=== PATIENT | male | born 1985 | race Caucasian/White ===

== ENCOUNTER 2018-08-31 08:17 | Day surgery (SDC) | payer OTHER ==
[2018-08-31] MEDS ORDERED: SOD CHLORIDE 0.9% 1,000 ML IV (09:02)
[2018-08-31] MEDS ORDERED: LIDOCAINE 1% (MDV) 20 ML INJ (09:49)
[2018-08-31] MEDS: FENTAnyl 50 MCG/ML VIAL (10:30)
[2018-08-31] MEDS: MIDAZOLAM 1 MG/ML 2 ML INJ (10:45)
[2018-08-31 11:52] LABS: ADD MAN DIFF? NO
[2018-08-31 11:55] LABS: BASOPHIL # 0.1 10^3/ul (0.0-0.1); BASOPHILS % 0.9 % (0.0-2.0); EOSINOPHILS # 0.4 10^3/ul (0.0-0.5); EOSINOPHILS % 5.7 % (0.0-7.0); HEMATOCRIT 36.2 % (42.0-52.0); LYMPHOCYTES # 1.1 10^3/ul (0.8-2.9); LYMPHOCYTES % 16.2 % (15.0-51.0); MEAN CORPUSCULAR HEMOGLOBIN 28.2 pg (29.0-33.0); MEAN CORPUSCULAR HGB CONC 33.1 g/dl (32.0-37.0); MEAN CORPUSCULAR VOLUME 85.2 fl (82.0-101.0); MEAN PLATELET VOLUME 9.6 fl (7.4-10.4); MONOCYTE # 0.5 10^3/ul (0.3-0.9); MONOCYTES % 7.1 % (0.0-11.0); NEUTROPHIL # 4.6 10^3/ul (1.6-7.5); NEUTROPHILS % 69.8 % (39.0-77.0); PLATELET COUNT 173 10^3/UL (140-415); RED BLOOD COUNT 4.25 10^6/ul (4.70-6.10); RED CELL DISTRIBUTION WIDTH 13.7 % (11.5-14.5)
[2018-08-31 11:55] LABS: WHITE BLOOD COUNT 6.6 10^3/ul (4.8-10.8)
== END 2018-08-31 13:56 | disposition home or self-care (01) ==
LOC: RAD 08:17 → SDS 08:17 → RAD 13:56
DX: K86.3 Pseudocyst of pancreas (principal)
CPT/HCPCS: 49405; 75989; 77012; 85025; 87070; 87075

== ENCOUNTER 2018-10-04 12:05 | Inpatient (IN) | payer OTHER ==
[2018-10-04 12:59] LABS: ADD MAN DIFF? NO
[2018-10-04] MEDS: HYDROmorphONE 0.5 MG/0.5 ML SYG IV (13:00)
[2018-10-04] MEDS: ONDANSETRON 4 MG INJ IV ×2 (13:00→20:35)
[2018-10-04] MEDS: PIPER-TAZO 3.375 GM IV (PMX) 100 ML IVPB (13:00)
[2018-10-04 13:03] LABS: BASOPHIL # 0.1 10^3/ul (0.0-0.1); BASOPHILS % 0.6 % (0.0-2.0); EOSINOPHILS # 0.1 10^3/ul (0.0-0.5); EOSINOPHILS % 1.1 % (0.0-7.0); HEMOGLOBIN 12.5 g/dl (14.0-18.0); LYMPHOCYTES # 1.2 10^3/ul (0.8-2.9); LYMPHOCYTES % 13.6 % (15.0-51.0); MEAN CORPUSCULAR HEMOGLOBIN 27.7 pg (29.0-33.0); MEAN CORPUSCULAR HGB CONC 32.9 g/dl (32.0-37.0); MEAN CORPUSCULAR VOLUME 84.1 fl (82.0-101.0); MEAN PLATELET VOLUME 9.3 fl (7.4-10.4); MONOCYTE # 1.3 10^3/ul (0.3-0.9); NEUTROPHIL # 6.3 10^3/ul (1.6-7.5); NEUTROPHILS % 70.4 % (39.0-77.0); PLATELET COUNT 227 10^3/UL (140-415); RED BLOOD COUNT 4.52 10^6/ul (4.70-6.10); RED CELL DISTRIBUTION WIDTH 12.5 % (11.5-14.5)
[2018-10-04 13:28] LABS: ALANINE AMINOTRANSFERASE 63 IU/L (13-69); ALBUMIN 4.4 g/dl (3.3-4.9); ALBUMIN/GLOBULIN RATIO 1.25; ALKALINE PHOSPHATASE 120 IU/L (42-121); ANION GAP 13 (5-13); ASPARTATE AMINO TRANSFERASE 40 IU/L (15-46); BILIRUBIN,INDIRECT 0.6 mg/dl (0-1.1); BILIRUBIN,TOTAL 0.6 mg/dl (0.2-1.3); BLOOD UREA NITROGEN 9 mg/dl (7-20); CALCIUM 10.2 mg/dl (8.4-10.2); CARBON DIOXIDE 27 mmol/L (21-31); CHLORIDE 100 mmol/L (97-110); CREATININE 0.78 mg/dl (0.61-1.24); Estimated GFR > 60 mL/min (>60); GLUCOSE 146 mg/dl (70-220); INR 1.09; POTASSIUM 3.9 mmol/L (3.5-5.1); PROTIME 14.2 Sec (11.9-14.9); PT RATIO 1.1; SODIUM 140 mmol/L (135-144); TOTAL PROTEIN 7.9 g/dl (6.1-8.1)
[2018-10-04 13:29] LABS: PARTIAL THROMBOPLASTIN TIME 28.1 Sec (23.0-35.0)
[2018-10-04 13:39] LABS: TROPONIN-I < 0.012 ng/ml (0.000-0.120)
[2018-10-04] MEDS: SOD CHLORIDE 0.9% 100 ML (13:44)
[2018-10-04] MEDS: IOHEXOL 300MG/ML 150 ML BTL (13:44)
[2018-10-04] MEDS: METOCLOPRAMIDE 10 MG INJ IV (14:15)
[2018-10-04 15:07] LABS: LACTIC ACID 1.1 mmol/L (0.5-2.0)
[2018-10-04 16:22] LABS: URINE PH (Dip) POC 5.5 (5.0-8.5)
[2018-10-04 16:22] LABS: URINE BLOOD (Dip) POC Trace-intact (NEGATIVE); URINE GLUCOSE (Dip) POC Negative (NEGATIVE); URINE KETONES (Dip) POC Negative (NEGATIVE); URINE LEUKOCYTE EST (Dip) POC Negative (NEGATIVE); URINE NITRITE (Dip) POC Negative (NEGATIVE); URINE TOTAL PROTEIN POC 1+ (NEGATIVE)
[2018-10-04] MEDS ORDERED: NACL 0.9% 3 ML SYG IV (16:30)
[2018-10-04 16:36] LABS: ADD UMIC NO; UR ASCORBIC ACID NEGATIVE (NEGATIVE); UR BILIRUBIN (Dip) NEGATIVE (NEGATIVE); UR BLOOD (Dip) NEGATIVE (NEGATIVE); UR CLARITY CLEAR (CLEAR); UR COLOR YELLOW (YELLOW); UR GLUCOSE (Dip) NEGATIVE (NEGATIVE); UR KETONES (Dip) NEGATIVE (NEGATIVE); UR LEUKOCYTE ESTERASE (Dip) NEGATIVE Leu/ul (NEGATIVE); UR NITRITE (Dip) NEGATIVE (NEGATIVE); UR SPECIFIC GRAVITY (Dip) > 1.060 (1.003-1.030); UR TOTAL PROTEIN (Dip) NEGATIVE (NEGATIVE); UR UROBILINOGEN (Dip) NEGATIVE (NEGATIVE)
[2018-10-04] MEDS ORDERED: GLUCAGON 1 MG INJ IM (17:00)
[2018-10-04] MEDS ORDERED: DEXTROSE 50% 50 ML SYRINGE IV ×2 (17:00)
[2018-10-04] MEDS ORDERED: GLUCOSE GEL 15 GRAM TUBE BUCCAL (17:00)
[2018-10-04] MEDS ORDERED: GLUCOSE GEL 15 GRAM TUBE PO ×2 (17:00)
[2018-10-04] MEDS: NICOTINE (7 MG/24 HR) PATCH TRANSDERM (17:29)
[2018-10-04] MEDS: ACETAMINOPHEN 325 MG TAB PO (19:03)
[2018-10-04] MEDS: INSULIN ASPART [NOVOLOG] 3 ML PEN SC ×2 (19:25→22:17)
[2018-10-04] MEDS ORDERED: HYDROmorphONE 1 MG/ML SYG IV (20:00)
[2018-10-04 21:30] LABS: PROCALCITONIN 0.09 ng/mL (0.00-0.10)
[2018-10-04] MEDS: traZODone 100 MG TAB PO (22:15)
[2018-10-04] MEDS: AL HYDROX/MG HYDROX/SIMETH 30 ML CUP PO (22:15)
[2018-10-05] MEDS: ACCU-CHEK XX (02:00)
[2018-10-05] MEDS: ACETAMINOPHEN 325 MG TAB PO ×3 (02:41→16:50)
[2018-10-05] MEDS: ONDANSETRON 4 MG INJ IV ×4 (02:44→22:07)
[2018-10-05 05:44] LABS: ADD MAN DIFF? NO
[2018-10-05 05:46] LABS: BASOPHIL # 0.1 10^3/ul (0.0-0.1); BASOPHILS % 0.6 % (0.0-2.0); EOSINOPHILS # 0.1 10^3/ul (0.0-0.5); EOSINOPHILS % 0.9 % (0.0-7.0); HEMOGLOBIN 12.2 g/dl (14.0-18.0); LYMPHOCYTES # 0.8 10^3/ul (0.8-2.9); LYMPHOCYTES % 8.8 % (15.0-51.0); MEAN CORPUSCULAR HEMOGLOBIN 27.5 pg (29.0-33.0); MEAN CORPUSCULAR VOLUME 83.5 fl (82.0-101.0); MEAN PLATELET VOLUME 9.9 fl (7.4-10.4); MONOCYTE # 1.2 10^3/ul (0.3-0.9); MONOCYTES % 12.6 % (0.0-11.0); NEUTROPHIL # 7.3 10^3/ul (1.6-7.5); NEUTROPHILS % 76.7 % (39.0-77.0); PLATELET COUNT 191 10^3/UL (140-415); RED BLOOD COUNT 4.43 10^6/ul (4.70-6.10); RED CELL DISTRIBUTION WIDTH 12.6 % (11.5-14.5)
[2018-10-05 05:46] LABS: WHITE BLOOD COUNT 9.5 10^3/ul (4.8-10.8)
[2018-10-05 06:13] LABS: ALANINE AMINOTRANSFERASE 63 IU/L (13-69); ALBUMIN/GLOBULIN RATIO 1.14; ALKALINE PHOSPHATASE 120 IU/L (42-121); ANION GAP 12 (5-13); ASPARTATE AMINO TRANSFERASE 33 IU/L (15-46); BILIRUBIN,INDIRECT 0.6 mg/dl (0-1.1); BILIRUBIN,TOTAL 0.6 mg/dl (0.2-1.3); BLOOD UREA NITROGEN 11 mg/dl (7-20); CALCIUM 9.5 mg/dl (8.4-10.2); CARBON DIOXIDE 26 mmol/L (21-31); CHLORIDE 100 mmol/L (97-110); CREATININE 0.68 mg/dl (0.61-1.24); Estimated GFR > 60 mL/min (>60); GLUCOSE 160 mg/dl (70-220); MAGNESIUM 1.9 mg/dl (1.7-2.5); PHOSPHORUS 4.8 mg/dl (2.5-4.9); POTASSIUM 3.5 mmol/L (3.5-5.1); SODIUM 138 mmol/L (135-144); TOTAL PROTEIN 7.5 g/dl (6.1-8.1)
[2018-10-05 06:18] LABS: HEMOGLOBIN A1C 6.2 % (0-5.9)
[2018-10-05] MEDS: AL HYDROX/MG HYDROX/SIMETH 30 ML CUP PO (08:42)
[2018-10-05] MEDS: SERTRALINE 100 MG TAB PO (08:42)
[2018-10-05] MEDS: AMLODIPINE 5 MG TAB PO (08:42)
[2018-10-05] MEDS: NICOTINE (7 MG/24 HR) PATCH TRANSDERM (08:44)
[2018-10-05] MEDS: INSULIN ASPART [NOVOLOG] 3 ML PEN SC ×4 (08:54→21:00)
[2018-10-05] MEDS: PANTOPRAZOLE 40 MG INJ IV (11:39)
[2018-10-05] MEDS: morphine 2 MG INJ IV ×3 (11:39→23:51)
[2018-10-05] MEDS: clonAZEPAM 0.5 MG TAB PO (11:54)
[2018-10-05] MEDS: LOPERAMIDE 2 MG CAP PO ×2 (13:17→22:07)
[2018-10-05] MEDS: SOD CHLORIDE 0.9% 1,000 ML IV ×3 (15:47→23:56)
[2018-10-05 16:12] LABS: OCCULT BLOOD STOOL NEGATIVE (NEGATIVE)
[2018-10-05] MEDS: traZODone 100 MG TAB PO (22:07)
[2018-10-06] MEDS: ACCU-CHEK XX (02:00)
[2018-10-06 06:22] LABS: AMYLASE 41 U/L (11-123); ANION GAP 9 (5-13); BLOOD UREA NITROGEN 9 mg/dl (7-20); CARBON DIOXIDE 28 mmol/L (21-31); CHLORIDE 100 mmol/L (97-110); CREATININE 0.74 mg/dl (0.61-1.24); Estimated GFR > 60 mL/min (>60); GLUCOSE 132 mg/dl (70-220); POTASSIUM 3.7 mmol/L (3.5-5.1); SODIUM 137 mmol/L (135-144)
[2018-10-06] MEDS: morphine 2 MG INJ IV ×4 (07:12→21:40)
[2018-10-06] MEDS: SOD CHLORIDE 0.9% 1,000 ML IV ×4 (09:52→23:30)
[2018-10-06] MEDS: SERTRALINE 100 MG TAB PO (09:53)
[2018-10-06] MEDS: AMLODIPINE 5 MG TAB PO (09:53)
[2018-10-06] MEDS: NICOTINE (7 MG/24 HR) PATCH TRANSDERM (09:53)
[2018-10-06] MEDS: PANTOPRAZOLE 40 MG INJ IV (09:53)
[2018-10-06] MEDS: INSULIN ASPART [NOVOLOG] 3 ML PEN SC ×4 (09:55→20:36)
[2018-10-06] MEDS: ONDANSETRON 4 MG INJ IV ×2 (10:18→17:49)
[2018-10-06] MEDS: AL HYDROX/MG HYDROX/SIMETH 30 ML CUP PO (10:49)
[2018-10-06] MEDS: clonAZEPAM 0.5 MG TAB PO (11:25)
[2018-10-06 11:43] LABS: LIPASE 45 U/L (23-300)
[2018-10-06] MEDS: ACETAMINOPHEN 325 MG TAB PO ×2 (12:35→20:31)
[2018-10-06] MEDS: MEROPENEM 1 GM/50ML(PMX) 50 ML IVPB ×2 (13:54→21:48)
[2018-10-06] MEDS: HYDROCODONE/APAP (5/325) TAB PO (18:05)
[2018-10-06] MEDS: traZODone 100 MG TAB PO (20:30)
[2018-10-07] MEDS: SOD CHLORIDE 0.9% 1,000 ML IV ×4 (01:42→23:30)
[2018-10-07] MEDS: morphine 2 MG INJ IV ×4 (01:46→20:05)
[2018-10-07] MEDS: ONDANSETRON 4 MG INJ IV ×4 (01:46→20:31)
[2018-10-07] MEDS: ACCU-CHEK XX (02:00)
[2018-10-07 05:32] LABS: ADD MAN DIFF? NO
[2018-10-07 05:37] LABS: BASOPHILS % 0.2 % (0.0-2.0); EOSINOPHILS % 0.5 % (0.0-7.0); HEMATOCRIT 30.8 % (42.0-52.0); LYMPHOCYTES % 10.9 % (15.0-51.0); MEAN CORPUSCULAR HEMOGLOBIN 27.5 pg (29.0-33.0); MEAN CORPUSCULAR HGB CONC 32.5 g/dl (32.0-37.0); MEAN CORPUSCULAR VOLUME 84.8 fl (82.0-101.0); MEAN PLATELET VOLUME 9.3 fl (7.4-10.4); MONOCYTES % 11.6 % (0.0-11.0); NEUTROPHIL # 6.6 10^3/ul (1.6-7.5); NEUTROPHILS % 76.3 % (39.0-77.0); PLATELET COUNT 179 10^3/UL (140-415); RED BLOOD COUNT 3.63 10^6/ul (4.70-6.10); RED CELL DISTRIBUTION WIDTH 12.2 % (11.5-14.5)
[2018-10-07 05:37] LABS: WHITE BLOOD COUNT 8.7 10^3/ul (4.8-10.8)
[2018-10-07 06:11] LABS: ALANINE AMINOTRANSFERASE 32 IU/L (13-69); ALBUMIN 3.2 g/dl (3.3-4.9); ALKALINE PHOSPHATASE 79 IU/L (42-121); ANION GAP 11 (5-13); ASPARTATE AMINO TRANSFERASE 14 IU/L (15-46); BILIRUBIN,INDIRECT 0.6 mg/dl (0-1.1); BILIRUBIN,TOTAL 0.6 mg/dl (0.2-1.3); BLOOD UREA NITROGEN 8 mg/dl (7-20); CALCIUM 8.8 mg/dl (8.4-10.2); CARBON DIOXIDE 28 mmol/L (21-31); CHLORIDE 98 mmol/L (97-110); CREATININE 0.68 mg/dl (0.61-1.24); Estimated GFR > 60 mL/min (>60); GLUCOSE 112 mg/dl (70-220); POTASSIUM 3.2 mmol/L (3.5-5.1); SODIUM 137 mmol/L (135-144); TOTAL PROTEIN 6.1 g/dl (6.1-8.1)
[2018-10-07] MEDS: MEROPENEM 1 GM/50ML(PMX) 50 ML IVPB ×3 (06:18→22:17)
[2018-10-07 07:04] LABS: C-REACTIVE PROTEIN 37.4 mg/dl (0.0-0.9)
[2018-10-07 07:30] LABS: ERYTHROCYTE SEDIMENTATION RATE 59 mm/Hr (0-15)
[2018-10-07 07:43] LABS: PROCALCITONIN 0.11 ng/mL (0.00-0.10)
[2018-10-07] MEDS: INSULIN ASPART [NOVOLOG] 3 ML PEN SC ×4 (08:00→21:00)
[2018-10-07] MEDS: PANTOPRAZOLE 40 MG INJ IV (09:01)
[2018-10-07] MEDS: SERTRALINE 100 MG TAB PO (09:01)
[2018-10-07] MEDS: NICOTINE (7 MG/24 HR) PATCH TRANSDERM (09:02)
[2018-10-07] MEDS: AMLODIPINE 5 MG TAB PO (09:02)
[2018-10-07] MEDS: clonAZEPAM 0.5 MG TAB PO (10:08)
[2018-10-07] MEDS ORDERED: VANCOMYCIN IV PER PHARMACY XX (10:30)
[2018-10-07] MEDS: LOPERAMIDE 2 MG CAP PO ×2 (11:21→20:15)
[2018-10-07] MEDS: VANCOMYCIN HCL 2 GM in SOD CHLORIDE 0.9% 500 ML IVPB (12:18)
[2018-10-07] MEDS: POTASSIUM CHLORIDE 20 MEQ POWDER FOR ORAL SOLN PO (13:58)
[2018-10-07] MEDS: ACETAMINOPHEN 325 MG TAB PO (14:56)
[2018-10-07] MEDS: HYDROCODONE/APAP (5/325) TAB PO (16:04)
[2018-10-07] MEDS: traZODone 100 MG TAB PO (20:10)
[2018-10-07] MEDS: VANCOMYCIN 1.25 GM/NS 250 ML 250 ML IVPB (20:16)
[2018-10-08] MEDS: ACCU-CHEK XX (02:00)
[2018-10-08] MEDS: VANCOMYCIN 1.25 GM/NS 250 ML 250 ML IVPB (04:29)
[2018-10-08] MEDS: SOD CHLORIDE 0.9% 1,000 ML IV ×2 (04:37→07:30)
[2018-10-08] MEDS: morphine 2 MG INJ IV ×4 (06:09→19:39)
[2018-10-08] MEDS: MEROPENEM 1 GM/50ML(PMX) 50 ML IVPB (06:13)
[2018-10-08] MEDS: INSULIN ASPART [NOVOLOG] 3 ML PEN SC ×4 (08:00→21:00)
[2018-10-08] MEDS: PANTOPRAZOLE 40 MG INJ IV (09:11)
[2018-10-08] MEDS: NICOTINE (7 MG/24 HR) PATCH TRANSDERM (09:12)
[2018-10-08] MEDS: AMLODIPINE 5 MG TAB PO (09:12)
[2018-10-08] MEDS: SERTRALINE 100 MG TAB PO (09:12)
[2018-10-08] MEDS: ONDANSETRON 4 MG INJ IV (09:27)
[2018-10-08] MEDS: LOPERAMIDE 2 MG CAP PO (10:27)
[2018-10-08] MEDS: PIPER-TAZO 3.375 GM IV (PMX) 100 ML IVPB ×3 (12:33→23:45)
[2018-10-08] MEDS: HYDROCODONE/APAP (5/325) TAB PO ×2 (12:33→21:03)
[2018-10-08] MEDS: clonAZEPAM 0.5 MG TAB PO (12:40)
[2018-10-08] MEDS: traZODone 100 MG TAB PO (21:00)
[2018-10-09] MEDS: ACCU-CHEK XX (02:00)
[2018-10-09] MEDS: PIPER-TAZO 3.375 GM IV (PMX) 100 ML IVPB ×4 (05:55→23:16)
[2018-10-09] MEDS: morphine 2 MG INJ IV ×3 (06:04→20:50)
[2018-10-09 06:50] LABS: INR 1.17; PT RATIO 1.2
[2018-10-09 06:51] LABS: PARTIAL THROMBOPLASTIN TIME 30.3 Sec (23.0-35.0)
[2018-10-09] MEDS: INSULIN ASPART [NOVOLOG] 3 ML PEN SC ×4 (08:00→21:00)
[2018-10-09] MEDS: MIDAZOLAM 1 MG/ML 2 ML INJ (08:45)
[2018-10-09] MEDS: FENTAnyl 50 MCG/ML VIAL (08:45)
[2018-10-09] MEDS: LIDOCAINE 1% (MDV) 20 ML INJ (08:55)
[2018-10-09] MEDS: AMLODIPINE 5 MG TAB PO ×2 (09:00→12:39)
[2018-10-09] MEDS: NICOTINE (7 MG/24 HR) PATCH TRANSDERM ×2 (09:00→12:39)
[2018-10-09] MEDS: SERTRALINE 100 MG TAB PO ×2 (09:00→12:39)
[2018-10-09] MEDS: PANTOPRAZOLE 40 MG INJ IV ×2 (09:00→12:38)
[2018-10-09] MEDS: clonAZEPAM 0.5 MG TAB PO (13:03)
[2018-10-09] MEDS: HYDROCODONE/APAP (5/325) TAB PO (19:22)
[2018-10-09] MEDS: traZODone 100 MG TAB PO (20:50)
[2018-10-09] MEDS: HEPARIN 5,000 UNIT/1 ML VIAL SC (20:54)
[2018-10-10] MEDS: ACCU-CHEK XX (02:00)
[2018-10-10] MEDS: PIPER-TAZO 3.375 GM IV (PMX) 100 ML IVPB ×3 (05:12→17:19)
[2018-10-10] MEDS: morphine 2 MG INJ IV ×4 (05:12→20:59)
[2018-10-10 05:58] LABS: ADD MAN DIFF? NO
[2018-10-10 06:15] LABS: WHITE BLOOD COUNT 6.3 10^3/ul (4.8-10.8)
[2018-10-10 06:15] LABS: BASOPHILS % 0.6 % (0.0-2.0); EOSINOPHILS # 0.3 10^3/ul (0.0-0.5); HEMATOCRIT 30.4 % (42.0-52.0); HEMOGLOBIN 9.8 g/dl (14.0-18.0); LYMPHOCYTES # 1.1 10^3/ul (0.8-2.9); LYMPHOCYTES % 17.7 % (15.0-51.0); MEAN CORPUSCULAR HEMOGLOBIN 27.3 pg (29.0-33.0); MEAN CORPUSCULAR HGB CONC 32.2 g/dl (32.0-37.0); MEAN CORPUSCULAR VOLUME 84.7 fl (82.0-101.0); MEAN PLATELET VOLUME 9.8 fl (7.4-10.4); MONOCYTE # 0.5 10^3/ul (0.3-0.9); MONOCYTES % 7.9 % (0.0-11.0); NEUTROPHIL # 4.4 10^3/ul (1.6-7.5); NEUTROPHILS % 69.5 % (39.0-77.0); PLATELET COUNT 261 10^3/UL (140-415); RED BLOOD COUNT 3.59 10^6/ul (4.70-6.10); RED CELL DISTRIBUTION WIDTH 12.5 % (11.5-14.5)
[2018-10-10 06:40] LABS: MAGNESIUM 2.1 mg/dl (1.7-2.5)
[2018-10-10 06:42] LABS: ANION GAP 7 (5-13); BLOOD UREA NITROGEN 11 mg/dl (7-20); CALCIUM 8.6 mg/dl (8.4-10.2); CARBON DIOXIDE 34 mmol/L (21-31); CHLORIDE 99 mmol/L (97-110); CREATININE 0.64 mg/dl (0.61-1.24); Estimated GFR > 60 mL/min (>60); GLUCOSE 125 mg/dl (70-220); POTASSIUM 3.3 mmol/L (3.5-5.1); SODIUM 140 mmol/L (135-144)
[2018-10-10] MEDS: INSULIN ASPART [NOVOLOG] 3 ML PEN SC ×4 (08:00→20:17)
[2018-10-10] MEDS: POTASSIUM CHLORIDE (SR) 20 MEQ TAB PO (09:08)
[2018-10-10] MEDS: SERTRALINE 100 MG TAB PO (09:08)
[2018-10-10] MEDS: NICOTINE (7 MG/24 HR) PATCH TRANSDERM (09:09)
[2018-10-10] MEDS: AMLODIPINE 5 MG TAB PO (09:09)
[2018-10-10] MEDS: PANTOPRAZOLE 40 MG INJ IV (09:09)
[2018-10-10] MEDS: HEPARIN 5,000 UNIT/1 ML VIAL SC ×2 (09:10→20:23)
[2018-10-10] MEDS: clonAZEPAM 0.5 MG TAB PO ×2 (09:11→20:16)
[2018-10-10] MEDS: HYDROCODONE/APAP (5/325) TAB PO ×2 (12:31→18:47)
[2018-10-10] MEDS: traZODone 100 MG TAB PO (20:16)
[2018-10-11] MEDS: PIPER-TAZO 3.375 GM IV (PMX) 100 ML IVPB ×4 (01:14→18:10)
[2018-10-11] MEDS: ACCU-CHEK XX (02:00)
[2018-10-11] MEDS: morphine 2 MG INJ IV ×3 (06:09→15:55)
[2018-10-11] MEDS: INSULIN ASPART [NOVOLOG] 3 ML PEN SC ×4 (08:00→21:00)
[2018-10-11] MEDS: SERTRALINE 100 MG TAB PO (08:58)
[2018-10-11] MEDS: NICOTINE (7 MG/24 HR) PATCH TRANSDERM (08:58)
[2018-10-11] MEDS: PANTOPRAZOLE 40 MG INJ IV (08:58)
[2018-10-11] MEDS: AMLODIPINE 5 MG TAB PO (08:59)
[2018-10-11] MEDS: HEPARIN 5,000 UNIT/1 ML VIAL SC ×2 (09:07→21:36)
[2018-10-11] MEDS: clonAZEPAM 0.5 MG TAB PO (09:07)
[2018-10-11] MEDS: ONDANSETRON 4 MG INJ IV (15:55)
[2018-10-11] MEDS: traZODone 100 MG TAB PO (21:25)
[2018-10-12] MEDS: PIPER-TAZO 3.375 GM IV (PMX) 100 ML IVPB ×4 (00:57→18:00)
[2018-10-12] MEDS: ACCU-CHEK XX (02:00)
[2018-10-12 06:11] LABS: ADD MAN DIFF? NO
[2018-10-12 06:18] LABS: BASOPHILS % 0.5 % (0.0-2.0); EOSINOPHILS # 0.2 10^3/ul (0.0-0.5); EOSINOPHILS % 2.6 % (0.0-7.0); HEMATOCRIT 31.8 % (42.0-52.0); HEMOGLOBIN 10.2 g/dl (14.0-18.0); LYMPHOCYTES # 1.1 10^3/ul (0.8-2.9); MEAN CORPUSCULAR HEMOGLOBIN 27.6 pg (29.0-33.0); MEAN CORPUSCULAR HGB CONC 32.1 g/dl (32.0-37.0); MEAN CORPUSCULAR VOLUME 86.2 fl (82.0-101.0); MEAN PLATELET VOLUME 9.3 fl (7.4-10.4); MONOCYTE # 0.5 10^3/ul (0.3-0.9); MONOCYTES % 7.3 % (0.0-11.0); NEUTROPHIL # 4.8 10^3/ul (1.6-7.5); PLATELET COUNT 284 10^3/UL (140-415); RED BLOOD COUNT 3.69 10^6/ul (4.70-6.10); RED CELL DISTRIBUTION WIDTH 12.5 % (11.5-14.5)
[2018-10-12 06:18] LABS: WHITE BLOOD COUNT 6.6 10^3/ul (4.8-10.8)
[2018-10-12 06:49] LABS: MAGNESIUM 2.2 mg/dl (1.7-2.5)
[2018-10-12 06:49] LABS: PHOSPHORUS 4.6 mg/dl (2.5-4.9)
[2018-10-12 06:52] LABS: ANION GAP 5 (5-13); BLOOD UREA NITROGEN 12 mg/dl (7-20); CARBON DIOXIDE 31 mmol/L (21-31); CHLORIDE 104 mmol/L (97-110); CREATININE 0.71 mg/dl (0.61-1.24); Estimated GFR > 60 mL/min (>60); GLUCOSE 123 mg/dl (70-220); POTASSIUM 3.7 mmol/L (3.5-5.1); SODIUM 140 mmol/L (135-144)
[2018-10-12] MEDS: INSULIN ASPART [NOVOLOG] 3 ML PEN SC ×4 (08:00→20:24)
[2018-10-12] MEDS: AMLODIPINE 5 MG TAB PO (08:11)
[2018-10-12] MEDS: PANTOPRAZOLE 40 MG INJ IV (08:12)
[2018-10-12] MEDS: SERTRALINE 100 MG TAB PO (08:12)
[2018-10-12] MEDS: HEPARIN 5,000 UNIT/1 ML VIAL SC ×2 (08:18→20:27)
[2018-10-12] MEDS: NICOTINE (7 MG/24 HR) PATCH TRANSDERM (08:18)
[2018-10-12] MEDS: HYDROCODONE/APAP (5/325) TAB PO ×2 (09:13→19:41)
[2018-10-12] MEDS: clonAZEPAM 0.5 MG TAB PO (09:13)
[2018-10-12] MEDS: ONDANSETRON 4 MG INJ IV (12:48)
[2018-10-12] MEDS: morphine 2 MG INJ IV (14:44)
[2018-10-12] MEDS: traZODone 100 MG TAB PO (20:22)
[2018-10-13] MEDS: PIPER-TAZO 3.375 GM IV (PMX) 100 ML IVPB ×4 (00:09→17:46)
[2018-10-13] MEDS: ACCU-CHEK XX (01:19)
[2018-10-13 05:54] LABS: ADD MAN DIFF? NO
[2018-10-13 05:59] LABS: WHITE BLOOD COUNT 7.3 10^3/ul (4.8-10.8)
[2018-10-13 05:59] LABS: BASOPHILS % 0.4 % (0.0-2.0); EOSINOPHILS # 0.2 10^3/ul (0.0-0.5); EOSINOPHILS % 2.3 % (0.0-7.0); HEMATOCRIT 32.2 % (42.0-52.0); HEMOGLOBIN 10.3 g/dl (14.0-18.0); LYMPHOCYTES # 1.3 10^3/ul (0.8-2.9); LYMPHOCYTES % 17.2 % (15.0-51.0); MEAN CORPUSCULAR HEMOGLOBIN 27.8 pg (29.0-33.0); MEAN PLATELET VOLUME 9.3 fl (7.4-10.4); MONOCYTE # 0.6 10^3/ul (0.3-0.9); MONOCYTES % 7.8 % (0.0-11.0); NEUTROPHIL # 5.2 10^3/ul (1.6-7.5); NEUTROPHILS % 71.5 % (39.0-77.0); PLATELET COUNT 280 10^3/UL (140-415); RED CELL DISTRIBUTION WIDTH 12.7 % (11.5-14.5)
[2018-10-13 06:21] LABS: PHOSPHORUS 4.7 mg/dl (2.5-4.9)
[2018-10-13 06:21] LABS: MAGNESIUM 2.3 mg/dl (1.7-2.5)
[2018-10-13 06:24] LABS: ANION GAP 6 (5-13); BLOOD UREA NITROGEN 17 mg/dl (7-20); CALCIUM 8.9 mg/dl (8.4-10.2); CARBON DIOXIDE 28 mmol/L (21-31); CHLORIDE 106 mmol/L (97-110); CREATININE 0.76 mg/dl (0.61-1.24); Estimated GFR > 60 mL/min (>60); GLUCOSE 134 mg/dl (70-220); POTASSIUM 3.8 mmol/L (3.5-5.1); SODIUM 140 mmol/L (135-144)
[2018-10-13] MEDS: INSULIN ASPART [NOVOLOG] 3 ML PEN SC ×4 (08:00→20:37)
[2018-10-13] MEDS: morphine 2 MG INJ IV ×2 (08:25→20:37)
[2018-10-13] MEDS: SERTRALINE 100 MG TAB PO (09:26)
[2018-10-13] MEDS: PANTOPRAZOLE 40 MG INJ IV (09:26)
[2018-10-13] MEDS: AMLODIPINE 5 MG TAB PO (09:27)
[2018-10-13] MEDS: NICOTINE (7 MG/24 HR) PATCH TRANSDERM (09:27)
[2018-10-13] MEDS: HEPARIN 5,000 UNIT/1 ML VIAL SC ×2 (09:31→20:45)
[2018-10-13] MEDS: clonAZEPAM 0.5 MG TAB PO ×2 (09:50→20:37)
[2018-10-13] MEDS: ONDANSETRON 4 MG INJ IV (09:50)
[2018-10-13] MEDS: HYDROCODONE/APAP (5/325) TAB PO ×2 (14:01→18:28)
[2018-10-13] MEDS: traZODone 100 MG TAB PO (20:36)
[2018-10-14] MEDS: PIPER-TAZO 3.375 GM IV (PMX) 100 ML IVPB ×4 (00:16→17:20)
[2018-10-14] MEDS: ACCU-CHEK XX (02:00)
[2018-10-14] MEDS: PANTOPRAZOLE (EC) 40 MG TAB PO (05:40)
[2018-10-14] MEDS: morphine 2 MG INJ IV ×3 (06:19→18:43)
[2018-10-14 06:28] LABS: ADD MAN DIFF? NO
[2018-10-14 06:31] LABS: WHITE BLOOD COUNT 6.5 10^3/ul (4.8-10.8)
[2018-10-14 06:31] LABS: BASOPHILS % 0.5 % (0.0-2.0); EOSINOPHILS # 0.2 10^3/ul (0.0-0.5); EOSINOPHILS % 2.8 % (0.0-7.0); HEMATOCRIT 31.9 % (42.0-52.0); HEMOGLOBIN 10.1 g/dl (14.0-18.0); LYMPHOCYTES # 1.3 10^3/ul (0.8-2.9); LYMPHOCYTES % 19.7 % (15.0-51.0); MEAN CORPUSCULAR HEMOGLOBIN 27.7 pg (29.0-33.0); MEAN CORPUSCULAR HGB CONC 31.7 g/dl (32.0-37.0); MEAN CORPUSCULAR VOLUME 87.4 fl (82.0-101.0); MEAN PLATELET VOLUME 9.1 fl (7.4-10.4); MONOCYTE # 0.5 10^3/ul (0.3-0.9); MONOCYTES % 7.4 % (0.0-11.0); NEUTROPHIL # 4.4 10^3/ul (1.6-7.5); NEUTROPHILS % 68.8 % (39.0-77.0); PLATELET COUNT 246 10^3/UL (140-415); RED BLOOD COUNT 3.65 10^6/ul (4.70-6.10); RED CELL DISTRIBUTION WIDTH 12.7 % (11.5-14.5)
[2018-10-14 07:01] LABS: MAGNESIUM 2.3 mg/dl (1.7-2.5)
[2018-10-14 07:01] LABS: PHOSPHORUS 4.5 mg/dl (2.5-4.9)
[2018-10-14 07:05] LABS: ANION GAP 7 (5-13); BLOOD UREA NITROGEN 13 mg/dl (7-20); CALCIUM 8.8 mg/dl (8.4-10.2); CARBON DIOXIDE 29 mmol/L (21-31); CHLORIDE 106 mmol/L (97-110); CREATININE 0.88 mg/dl (0.61-1.24); Estimated GFR > 60 mL/min (>60); GLUCOSE 127 mg/dl (70-220); SODIUM 142 mmol/L (135-144)
[2018-10-14] MEDS: HYDROCODONE/APAP (5/325) TAB PO ×3 (07:34→21:33)
[2018-10-14] MEDS: clonAZEPAM 0.5 MG TAB PO ×2 (07:34→20:30)
[2018-10-14 07:38] LABS: POTASSIUM 4.5 mmol/L (3.5-5.1)
[2018-10-14] MEDS: AMLODIPINE 5 MG TAB PO (08:34)
[2018-10-14] MEDS: SERTRALINE 100 MG TAB PO (08:35)
[2018-10-14] MEDS: NICOTINE (7 MG/24 HR) PATCH TRANSDERM (08:35)
[2018-10-14] MEDS: HEPARIN 5,000 UNIT/1 ML VIAL SC ×2 (08:40→20:34)
[2018-10-14] MEDS: INSULIN ASPART [NOVOLOG] 3 ML PEN SC ×4 (08:41→20:31)
[2018-10-14] MEDS: AL HYDROX/MG HYDROX/SIMETH 30 ML CUP PO (08:47)
[2018-10-14] MEDS: ONDANSETRON 4 MG INJ IV (09:28)
[2018-10-14] MEDS: CALCIUM CARBONATE 500 MG CHEW TAB PO ×2 (18:37→20:30)
[2018-10-14] MEDS: traZODone 100 MG TAB PO (20:31)
[2018-10-15] MEDS: PIPER-TAZO 3.375 GM IV (PMX) 100 ML IVPB ×4 (00:21→17:25)
[2018-10-15] MEDS: ACCU-CHEK XX (02:00)
[2018-10-15] MEDS: morphine 2 MG INJ IV ×5 (02:19→22:48)
[2018-10-15] MEDS: PANTOPRAZOLE (EC) 40 MG TAB PO (05:53)
[2018-10-15 06:09] LABS: ADD MAN DIFF? NO
[2018-10-15 06:16] LABS: WHITE BLOOD COUNT 8.5 10^3/ul (4.8-10.8)
[2018-10-15 06:16] LABS: BASOPHILS % 0.5 % (0.0-2.0); EOSINOPHILS # 0.2 10^3/ul (0.0-0.5); EOSINOPHILS % 2.1 % (0.0-7.0); HEMATOCRIT 33.3 % (42.0-52.0); HEMOGLOBIN 10.3 g/dl (14.0-18.0); LYMPHOCYTES # 1.2 10^3/ul (0.8-2.9); MEAN CORPUSCULAR HEMOGLOBIN 27.1 pg (29.0-33.0); MEAN CORPUSCULAR HGB CONC 30.9 g/dl (32.0-37.0); MEAN CORPUSCULAR VOLUME 87.6 fl (82.0-101.0); MEAN PLATELET VOLUME 9.3 fl (7.4-10.4); MONOCYTE # 0.7 10^3/ul (0.3-0.9); NEUTROPHIL # 6.4 10^3/ul (1.6-7.5); NEUTROPHILS % 74.9 % (39.0-77.0); PLATELET COUNT 250 10^3/UL (140-415); RED CELL DISTRIBUTION WIDTH 13.1 % (11.5-14.5)
[2018-10-15 06:31] LABS: ANION GAP 8 (5-13); BLOOD UREA NITROGEN 16 mg/dl (7-20); CARBON DIOXIDE 30 mmol/L (21-31); CHLORIDE 102 mmol/L (97-110); CREATININE 0.83 mg/dl (0.61-1.24); Estimated GFR > 60 mL/min (>60); GLUCOSE 142 mg/dl (70-220); POTASSIUM 4.2 mmol/L (3.5-5.1); SODIUM 140 mmol/L (135-144)
[2018-10-15] MEDS: INSULIN ASPART [NOVOLOG] 3 ML PEN SC ×4 (08:00→20:53)
[2018-10-15] MEDS: AMLODIPINE 5 MG TAB PO (08:06)
[2018-10-15] MEDS: SERTRALINE 100 MG TAB PO (08:06)
[2018-10-15] MEDS: NICOTINE (7 MG/24 HR) PATCH TRANSDERM (08:07)
[2018-10-15] MEDS: HEPARIN 5,000 UNIT/1 ML VIAL SC ×2 (08:09→20:51)
[2018-10-15] MEDS: clonAZEPAM 0.5 MG TAB PO (08:11)
[2018-10-15] MEDS: IOHEXOL 14.3 MG(I)/ML (ADULT) BTL PO (13:30)
[2018-10-15] MEDS: HYDROCODONE/APAP (5/325) TAB PO ×2 (14:35→20:46)
[2018-10-15] MEDS: traZODone 100 MG TAB PO (20:46)
[2018-10-16] MEDS: PIPER-TAZO 3.375 GM IV (PMX) 100 ML IVPB ×4 (00:02→17:43)
[2018-10-16] MEDS: ACCU-CHEK XX (02:00)
[2018-10-16] MEDS: PANTOPRAZOLE (EC) 40 MG TAB PO (05:19)
[2018-10-16 05:44] LABS: ADD MAN DIFF? NO
[2018-10-16 05:56] LABS: WHITE BLOOD COUNT 5.9 10^3/ul (4.8-10.8)
[2018-10-16 05:56] LABS: BASOPHILS % 0.5 % (0.0-2.0); EOSINOPHILS # 0.1 10^3/ul (0.0-0.5); EOSINOPHILS % 2.2 % (0.0-7.0); HEMATOCRIT 32.6 % (42.0-52.0); HEMOGLOBIN 10.2 g/dl (14.0-18.0); LYMPHOCYTES # 1.2 10^3/ul (0.8-2.9); LYMPHOCYTES % 19.9 % (15.0-51.0); MEAN CORPUSCULAR HEMOGLOBIN 27.4 pg (29.0-33.0); MEAN CORPUSCULAR HGB CONC 31.3 g/dl (32.0-37.0); MEAN CORPUSCULAR VOLUME 87.6 fl (82.0-101.0); MEAN PLATELET VOLUME 9.3 fl (7.4-10.4); MONOCYTE # 0.6 10^3/ul (0.3-0.9); MONOCYTES % 9.3 % (0.0-11.0); NEUTROPHILS % 67.4 % (39.0-77.0); PLATELET COUNT 223 10^3/UL (140-415); RED BLOOD COUNT 3.72 10^6/ul (4.70-6.10); RED CELL DISTRIBUTION WIDTH 13.2 % (11.5-14.5)
[2018-10-16 06:16] LABS: ANION GAP 7 (5-13); BLOOD UREA NITROGEN 16 mg/dl (7-20); CALCIUM 9.1 mg/dl (8.4-10.2); CARBON DIOXIDE 31 mmol/L (21-31); CHLORIDE 103 mmol/L (97-110); CREATININE 0.86 mg/dl (0.61-1.24); Estimated GFR > 60 mL/min (>60); GLUCOSE 148 mg/dl (70-220); POTASSIUM 3.8 mmol/L (3.5-5.1); SODIUM 141 mmol/L (135-144)
[2018-10-16] MEDS: morphine 2 MG INJ IV ×4 (07:47→22:23)
[2018-10-16] MEDS: INSULIN ASPART [NOVOLOG] 3 ML PEN SC ×4 (08:00→21:00)
[2018-10-16] MEDS: SERTRALINE 100 MG TAB PO (08:09)
[2018-10-16] MEDS: NICOTINE (7 MG/24 HR) PATCH TRANSDERM (08:10)
[2018-10-16] MEDS: HEPARIN 5,000 UNIT/1 ML VIAL SC ×2 (08:11→21:06)
[2018-10-16] MEDS: AMLODIPINE 5 MG TAB PO (08:12)
[2018-10-16] MEDS: clonAZEPAM 0.5 MG TAB PO ×2 (08:12→21:00)
[2018-10-16] MEDS: HYDROCODONE/APAP (5/325) TAB PO ×2 (15:27→21:00)
[2018-10-16] MEDS: traZODone 100 MG TAB PO (21:00)
[2018-10-17] MEDS: PIPER-TAZO 3.375 GM IV (PMX) 100 ML IVPB ×5 (00:23→23:38)
[2018-10-17] MEDS: ACCU-CHEK XX (02:00)
[2018-10-17] MEDS: morphine 2 MG INJ IV ×4 (04:49→20:24)
[2018-10-17] MEDS: PANTOPRAZOLE (EC) 40 MG TAB PO (06:00)
[2018-10-17] MEDS: INSULIN ASPART [NOVOLOG] 3 ML PEN SC ×4 (08:00→20:22)
[2018-10-17] MEDS: HYDROCODONE/APAP (5/325) TAB PO ×3 (08:35→18:00)
[2018-10-17] MEDS: SERTRALINE 100 MG TAB PO (08:55)
[2018-10-17] MEDS: NICOTINE (7 MG/24 HR) PATCH TRANSDERM (08:55)
[2018-10-17] MEDS: AMLODIPINE 5 MG TAB PO (08:56)
[2018-10-17] MEDS: HEPARIN 5,000 UNIT/1 ML VIAL SC ×2 (09:00→20:23)
[2018-10-17] MEDS: IOHEXOL 14.3 MG(I)/ML (ADULT) BTL PO (12:20)
[2018-10-17] MEDS ORDERED: SOD CHLORIDE 0.9% 100 ML (14:32)
[2018-10-17] MEDS ORDERED: IOHEXOL 300MG/ML 150 ML BTL (14:32)
[2018-10-17] MEDS: traZODone 100 MG TAB PO (20:18)
[2018-10-18] MEDS: ACCU-CHEK XX (02:00)
[2018-10-18] MEDS: morphine 2 MG INJ IV ×5 (02:07→18:46)
[2018-10-18] MEDS: PANTOPRAZOLE (EC) 40 MG TAB PO (05:49)
[2018-10-18] MEDS: PIPER-TAZO 3.375 GM IV (PMX) 100 ML IVPB (05:49)
[2018-10-18] MEDS: INSULIN ASPART [NOVOLOG] 3 ML PEN SC ×4 (08:00→20:22)
[2018-10-18 08:14] LABS: ADD MAN DIFF? NO
[2018-10-18 08:16] LABS: BASOPHILS % 0.6 % (0.0-2.0); EOSINOPHILS # 0.1 10^3/ul (0.0-0.5); HEMATOCRIT 35.2 % (42.0-52.0); HEMOGLOBIN 11.1 g/dl (14.0-18.0); LYMPHOCYTES % 16.3 % (15.0-51.0); MEAN CORPUSCULAR HEMOGLOBIN 27.3 pg (29.0-33.0); MEAN CORPUSCULAR HGB CONC 31.5 g/dl (32.0-37.0); MEAN CORPUSCULAR VOLUME 86.5 fl (82.0-101.0); MEAN PLATELET VOLUME 9.5 fl (7.4-10.4); MONOCYTE # 0.6 10^3/ul (0.3-0.9); MONOCYTES % 9.1 % (0.0-11.0); NEUTROPHIL # 4.6 10^3/ul (1.6-7.5); NEUTROPHILS % 71.7 % (39.0-77.0); PLATELET COUNT 221 10^3/UL (140-415); RED BLOOD COUNT 4.07 10^6/ul (4.70-6.10)
[2018-10-18 08:16] LABS: WHITE BLOOD COUNT 6.4 10^3/ul (4.8-10.8)
[2018-10-18 08:33] LABS: ALANINE AMINOTRANSFERASE 31 IU/L (13-69); ALBUMIN 3.9 g/dl (3.3-4.9); ALBUMIN/GLOBULIN RATIO 1.05; ALKALINE PHOSPHATASE 65 IU/L (42-121); ANION GAP 10 (5-13); ASPARTATE AMINO TRANSFERASE 23 IU/L (15-46); BILIRUBIN,INDIRECT 0.4 mg/dl (0-1.1); BILIRUBIN,TOTAL 0.4 mg/dl (0.2-1.3); BLOOD UREA NITROGEN 13 mg/dl (7-20); CALCIUM 9.7 mg/dl (8.4-10.2); CARBON DIOXIDE 28 mmol/L (21-31); CHLORIDE 100 mmol/L (97-110); CREATININE 0.82 mg/dl (0.61-1.24); Estimated GFR > 60 mL/min (>60); GLUCOSE 139 mg/dl (70-220); POTASSIUM 4.1 mmol/L (3.5-5.1); SODIUM 138 mmol/L (135-144); TOTAL PROTEIN 7.6 g/dl (6.1-8.1)
[2018-10-18] MEDS: SERTRALINE 100 MG TAB PO (08:37)
[2018-10-18] MEDS: HYDROCODONE/APAP (5/325) TAB PO ×2 (08:37→20:29)
[2018-10-18] MEDS: NICOTINE (7 MG/24 HR) PATCH TRANSDERM (08:38)
[2018-10-18] MEDS: AMOXICILLIN/CLAV 875 MG TAB PO ×2 (08:38→20:20)
[2018-10-18] MEDS: AMLODIPINE 5 MG TAB PO (08:40)
[2018-10-18] MEDS: HEPARIN 5,000 UNIT/1 ML VIAL SC ×2 (08:43→20:25)
[2018-10-18 10:41] LABS: LIPASE 69 U/L (23-300)
[2018-10-18 13:52] LABS: PROCALCITONIN 0.05 ng/mL (0.00-0.10)
[2018-10-18] MEDS: CIPROFLOXACIN 500 MG TAB PO (17:36)
[2018-10-18] MEDS: traZODone 100 MG TAB PO (20:20)
[2018-10-19] MEDS: ACCU-CHEK XX (02:00)
[2018-10-19] MEDS: morphine 2 MG INJ IV ×2 (02:48→06:52)
[2018-10-19] MEDS: PANTOPRAZOLE (EC) 40 MG TAB PO (06:12)
[2018-10-19] MEDS: CIPROFLOXACIN 500 MG TAB PO (06:12)
[2018-10-19] MEDS: INSULIN ASPART [NOVOLOG] 3 ML PEN SC ×2 (09:00→12:00)
[2018-10-19] MEDS: AMOXICILLIN/CLAV 875 MG TAB PO (09:01)
[2018-10-19] MEDS: HEPARIN 5,000 UNIT/1 ML VIAL SC (09:01)
[2018-10-19] MEDS: SERTRALINE 100 MG TAB PO (09:02)
[2018-10-19] MEDS: NICOTINE (7 MG/24 HR) PATCH TRANSDERM (09:03)
[2018-10-19] MEDS: AMLODIPINE 5 MG TAB PO (09:03)
[2018-10-19] MEDS: clonAZEPAM 0.5 MG TAB PO (09:10)
[2018-10-19] MEDS: HYDROCODONE/APAP (5/325) TAB PO ×2 (09:10→12:37)
== END 2018-10-19 14:35 | disposition home health service (06) | DRG 405 ==
LOC: E/R 12:05 → 2NE 15:17
PROC: 0FP Hepatobiliary System and Pancreas, Removal (ICD-10-PCS; principal; 2018-10-09)
PROC: 0FH Hepatobiliary System and Pancreas, Insertion (ICD-10-PCS; 2018-10-09)
DX: K86.3 Pseudocyst of pancreas (principal); K85.80 Other acute pancreatitis without necrosis or infection; F33.2 Major depressive disorder, recurrent severe without psychotic features; E11.9 Type 2 diabetes mellitus without complications; I10 Essential (primary) hypertension; K52.9 Noninfective gastroenteritis and colitis, unspecified; F41.8 Other specified anxiety disorders; Z72.0 Tobacco use; F10.10 Alcohol abuse, uncomplicated; B95.2 Enterococcus as the cause of diseases classified elsewhere; B96.89 Other specified bacterial agents as the cause of diseases classified elsewhere
CPT/HCPCS: 36415; 36573; 71045; 74177; 77012; 80048; 80053; 81003; 82150; 82270; 82962; 83036; 83605; 83690; 83735; 84100; 84145; 84443; 84484; 85025; 85610; 85651; 85730; 86140; 87040-91; 87045; 87070; 87075; 87086; 87177; 87205; 93005; 96374; 96375; 99285-25